=== PATIENT | female | born 1970 | race African-American/Black ===

== ENCOUNTER 2020-06-24 21:38 | Emergency (ER) | payer BC, OTHER ==
[~2020-06-24] VITALS: Ht 157.5 cm; Wt 69.0 kg
[~2020-06-24 21:38] MED LIST: ADVAIR; MOME13HF2; OLME1TAB14; PROIN3
[2020-06-24] MEDS ORDERED: HYDROCODONE/ACETAMINOPHEN 5/325MG TABLET PO STA (22:47)
[2020-06-25 01:18] LABS: BASOPHILS % 0.6 % (0.0-2.0); EOSINOPHILS % 0.6 % (0.0-5.0); HEMOGLOBIN. 13.7 g/dL (12.0-16.0); LYMPHOCYTES % 32.3 % (20.0-50.0); MEAN CORPUSCULAR HEMOGLOBIN 26.9 pg (28.0-32.0); MEAN CORPUSCULAR VOLUME 82.6 fL (81.0-99.0); MEAN PLATELET VOLUME 8.9 fl (7.4-10.4); MONOCYTES % 5.2 % (2.0-8.0); NEUTROPHILS % 61.3 % (40.0-76.0); PLATELET 259 x1000/uL (130-400); RED BLOOD CELL COUNT 5.09 mill/uL (4.2-5.4); RED CELL DISTRIBUTION WIDTH 15.4 % (11.6-14.6)
[2020-06-25 01:26] LABS: CHLORIDE 107 mEq/L (98-107)
[2020-06-25 01:58] LABS: PROTHROMBIN TIME 10.7 sec (9.6-11.0)
[2020-06-25 02:41] VITALS: BP 138/96
[2020-06-25] MEDS ORDERED: IOHEXOL-350 100 ML BOTTLE ONE (03:13)
== END 2020-06-25 03:44 | disposition home or self-care (01) ==
LOC: ER 21:38
DX: S16.1XXA Strain of muscle, fascia and tendon at neck level, initial encounter (principal); S20.219A Contusion of unspecified front wall of thorax, initial encounter; R51.9 Headache, unspecified; J98.11 Atelectasis; J44.9 Chronic obstructive pulmonary disease, unspecified; E11.9 Type 2 diabetes mellitus without complications; I11.9 Hypertensive heart disease without heart failure; Z88.0 Allergy status to penicillin; V43.52XA Car driver injured in collision with other type car in traffic accident, initial encounter; Y93.89 Activity, other specified; Y92.488 Other paved roadways as the place of occurrence of the external cause
CPT/HCPCS: 36415; 70450; 71045; 71275; 72125; 80053; 84484; 85025; 85610; 93005; 99285; Q9967